=== PATIENT | male | born 1980 | race Two or more races ===

== ENCOUNTER 2018-03-18 13:08 | Emergency (ER) | payer SELFPAY ==
[~2018-03-18] VITALS: Ht 180.3 cm; Wt 79.4 kg
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
[2018-03-18] MEDS ORDERED: Tetanus/Diptheria/Pertussis Vaccine 0.5ml Syr IM ONE (13:30)
--- NOTE | 2018-03-18 14:41 | Diagnostic Imaging Report ---
Indication: Pain Technique: XRAY Hand Complete L Comparison: None Findings: Limited exam as patient wouldn't/could not remove his ring. Underlying pathology not excludable. Within these limitations: No evidence of acute fracture or dislocation. Anatomic alignment and joint spaces appear within normal limits. Questionable soft tissue irregularity in the interspace between the first and second digits. No radiopaque foreign body identified. IMPRESSION: Limited exam as patient would/could not remove ring on third digit. Within these limitations: No acute fracture or dislocation. Questionable soft tissue irregularity between the first and second digits. Correlate with physical exam to assess for laceration .
[2018-03-18 15:07] VITALS: BP 117/82
== END 2018-03-18 15:26 | disposition home or self-care (01) ==
LOC: EDBD 13:08 → EMR 15:15
DX: S61.412A Laceration without foreign body of left hand, initial encounter (principal); V43.62XA Car passenger injured in collision with other type car in traffic accident, initial encounter; Y92.410 Unspecified street and highway as the place of occurrence of the external cause; Z23 Encounter for immunization
CPT/HCPCS: 90471; 90715; 99283